=== PATIENT | male | born 1995 | race Two or more races ===

== ENCOUNTER 2022-01-26 23:00 | Emergency (ER) | payer OTHER ==
[~2022-01-26] VITALS: Ht 165.1 cm; Wt 63.5 kg
== END 2022-01-27 00:55 | disposition home or self-care (01) ==
LOC: ER 23:00
DX: K21.9 Gastro-esophageal reflux disease without esophagitis (principal)

== ENCOUNTER → 2024-03-14 | Emergency (ER) | payer OTHER ==
[~2024-03-14] VITALS: Ht 165.1 cm; Wt 68.0 kg
== END | disposition home or self-care (01) ==
LOC: ER 16:48
DX: J06.9 Acute upper respiratory infection, unspecified (principal); Z20.822 Contact with and (suspected) exposure to COVID-19